=== PATIENT | male | born 1980 ===

== ENCOUNTER 2018-06-09 09:45 | Emergency (ER) | payer OTHER ==
[~2018-06-09] VITALS: Ht 185.4 cm; Wt 111.1 kg
[2018-06-09] MEDS ORDERED: AVALIDE 300-121 EACH PO (10:23)
[2018-06-09] MEDS ORDERED: KETO10TA2 PO (13:09)
[2018-06-09] MEDS ORDERED: TAMS0.4C PO (13:09)
== END 2018-06-09 16:35 | disposition home or self-care (01) ==
LOC: ER 09:45
DX: N20.1 Calculus of ureter (principal)

== ENCOUNTER 2018-11-18 13:01 | Emergency (ER) | payer OTHER ==
[~2018-11-18] VITALS: Ht 185.4 cm; Wt 111.1 kg
[~2018-11-18 13:01] MED LIST: AVALIDE 300-121 EACH PO; KETO10TA2 PO; TAMS0.4C PO
[2018-11-18] MEDS ORDERED: AVALIDE 300-121 EACH PO (13:13)
[2018-11-18] MEDS ORDERED: RELPAX20 MG PO (21:25)
== END 2018-11-18 22:03 | disposition home or self-care (01) ==
LOC: ER 13:01
DX: B34.9 Viral infection, unspecified (principal); G44.209 Tension-type headache, unspecified, not intractable

== ENCOUNTER 2020-08-04 08:08 | Emergency (ER) | payer OTHER ==
[~2020-08-04] VITALS: Ht 185.4 cm; Wt 111.1 kg
[~2020-08-04 08:08] MED LIST changes: +RELPAX20 MG PO
[2020-08-04] MEDS ORDERED: TAMS0.4C PO (16:56)
[2020-08-04] MEDS ORDERED: KETO10TA2 PO (16:56)
== END 2020-08-04 17:12 | disposition home or self-care (01) ==
LOC: ER 08:08
DX: N21.0 Calculus in bladder (principal); R16.2 Hepatomegaly with splenomegaly, not elsewhere classified; Z03.818 Encounter for observation for suspected exposure to other biological agents ruled out